=== PATIENT | female | born 1985 | race Caucasian/White ===

== ENCOUNTER 2019-02-08 15:27 | Emergency (ER) | payer OTHER ==
[~2019-02-08] VITALS: Ht 162.6 cm; Wt 74.8 kg
[2019-02-08] MEDS ORDERED: HYDROXYZINE HCL25 M2 PO (15:39)
[2019-02-08] MEDS ORDERED: TRAZODONE HCL100 MG PO (15:40)
[2019-02-08] MEDS ORDERED: LEVO-T75 MCG PO (15:41)
[2019-02-08] MEDS ORDERED: PROPRANOLOL 20M20 M1 PO (15:41)
[2019-02-08] MEDS ORDERED: REXULTI2 MG PO (15:42)
[2019-02-08 15:52] LABS: URINE BILIRUBIN NEGATIVE (Negative); URINE BLOOD NEGATIVE (Negative); URINE CLARITY CLEAR; URINE COLOR YELLOW; URINE GLUCOSE-RANDOM NEGATIVE (Negative); URINE KETONES NEGATIVE (Negative); URINE LEUKOCYTES-REFLEX NEGATIVE (Negative); URINE PROTEIN NEGATIVE (Negative); URINE SPECIFIC GRAVITY 1.015 (1.005-1.030); URINE UROBILINOGEN 0.2 E.U./dl (0.2-1.0)
[2019-02-08 15:53] LABS: URINE NITRITE-REFLEX POSITIVE (Negative)
[2019-02-08 16:00] LABS: SQUAMOUS NONE SEEN /LPF (0-3)
[2019-02-08 16:04] LABS: BACTERIA-REFLEX 1-9 Few /HPF (None Seen); CASTS None Seen /LPF (None Seen); CRYSTALS None Seen /LPF (None Seen); MUCUS None Seen strn/LPF (None Seen); URINE RBC None Seen /HPF (0-2); URINE WBC-REFLEX 0-5 Rare /HPF (0-5)
[2019-02-08 16:22] LABS: ABSOLUTE EOSINOPHILS 0.2 thou/uL (0.0-0.7); ABSOLUTE LYMPHOCYTES 2.4 thou/uL (0.8-5.3); ABSOLUTE MONOCYTES 0.6 thou/uL (0.0-1.2); ABSOLUTE NEUTROPHILS 4.9 thou/uL (1.6-8.1); BASOPHILS 0.4 %; EOSINOPHILS 2.7 %; HEMATOCRIT 43.3 % (37.0-47.0); HEMOGLOBIN 15.3 gm/dL (12.0-15.0); LYMPHOCYTES 29.2 %; MCHC 35.4 g/dL (28.0-37.0); MCV 93.2 fL (80.0-100.0); MONOCYTES 7.9 %; MPV 8.1 fl. (7.2-11.1); NUCLEATED RBCS 0 /100WBC; PLATELET COUNT* 313 thou/uL (150-400); POLYS 59.8 %; RBC 4.64 mil/uL (4.20-5.00); RDW-CV 13.4 % (10.5-14.5); WBC 8.1 thou/uL (4.0-11.0)
[2019-02-08 16:30] LABS: CALCIUM 9.6 mg/dL (8.5-10.1); POTASSIUM 4.1 mmol/L (3.5-5.1)
[2019-02-08 16:35] LABS: ALBUMIN 4.3 g/dL (3.4-5.0); TOTAL BILIRUBIN 0.3 mg/dL (<0.1-1.0); TOTAL PROTEIN 7.3 g/dL (6.4-8.2)
[2019-02-08] MEDS ORDERED: BACTRIM DS TAB1 EACH PO (19:11)
[2019-02-08] MEDS ORDERED: NAPROSYN500 MG PO (19:12)
[2019-02-08 19:29] VITALS: BP 116/45
== END 2019-02-08 19:31 | disposition home or self-care (01) ==
LOC: M.ERS 15:27
PROVIDERS: Nurse Practitioner Family
DX: N39.0 Urinary tract infection, site not specified (principal); R10.2 Pelvic and perineal pain; E03.9 Hypothyroidism, unspecified; F31.9 Bipolar disorder, unspecified; Z90.49 Acquired absence of other specified parts of digestive tract